=== PATIENT | female | born 1995 | race Caucasian/White ===

== ENCOUNTER 2023-01-22 18:19 | Emergency (ER) | payer OTHER, SELFPAY ==
[2023-01-22 18:45] VITALS: BP 141/74; PULSE 69; RESP 16; TEMP 36.1; O2SAT 100; BMI 30.5
--- NOTE | 2023-01-22 18:46 | ED.EYEPROB ---
HPI - Eye Problem General Chief complaint: Eye Problems Stated complaint: sunscreen in eye, blurry vision Time Seen by Provider: 01/22/23 19:55 Related Data Previous Rx's Medication Instructions Recorded tetrahydrozoline 0.05 %-zinc 0.25 1 drp ophthalmic (eye) TID #15 mL 01/22/23 % eye drops (Eye Drops Irritation Relief) Allergies Allergy/AdvReac Type Severity Reaction Status Date / Time No Known Allergies Allergy Verified 01/22/23 18:46 [facility] Social History Social History Advance Directives: No Advance Directives Information Provided: No Physical Exam Vital Signs: Vital Signs: Last Vital Signs Temp 96.9 F 01/22/23 18:45 Pulse 69 01/22/23 18:45 Resp 16 01/22/23 18:45 BP 141/74 H 01/22/23 18:45 Pulse Ox 100 01/22/23 18:45 O2 Del Method Room Air 01/22/23 18:45 BMI result Body Mass Index 30.5 Course Course Course Narrative: RME: 27 yo F w/ PMHx lupus c/o Left eye irritation, tearing, & blurry vision s/p suspected sunscreen in eye [employer]. Denies wearing glasses or contacts, trauma +L eye w/conjunctival injection/tearing. no glob rupture Visual acuity, tetracaine, fluorescein ordered Full HPI, ROS and PE to be performed by primary ED provider. Medications Administered Discontinued Medications Generic Name Dose Route Start Last Admin Trade Name Freq PRN Reason Stop Dose Admin Fluorescein Sodium 1 strip 01/22/23 18:46 01/22/23 19:02 Fluorescein Sodium Strip EYE-LEFT 01/22/23 18:47 1 strip ONCE ONE Administration Tetracaine HCl 1 drop 01/22/23 18:46 01/22/23 19:02 Tetracaine Hcl/Pf 0.5% Oph Kika 4 Ml Drops EYE-LEFT 01/22/23 18:47 1 drop ONCE ONE Administration Discharge Plan Discharge Clinical Impression: Eye irritation Patient Disposition: Home, Self-Care Instructions: Eye Pain (ED) Additional Instructions: Take your medications as prescribed. If you were prescribed antibiotics today, it is important that you take your medication to their entirety, do not skip any doses, do not finish them early. Follow-up with your primary care provider this week. Return to the emergency department with new or worsening symptoms. Such as fevers, chills, chest pain, shortness of breath, nausea, vomiting, dizziness, headache, vision changes, lethargy In case of emergency call 911 Prescriptions: New Eye Drops Irritation Relief 0.05-0.25 % drops 1 drp ophthalmic (eye) TID Qty: 15 0RF Referrals: Dominick Simpson [Physician] - 1 day Interventions: ED Discharge Assessment Last Done: 01/22/23 20:17 Discharge Date/Time: 01/22/23 20:18
[2023-01-22] MEDS: Tetracaine HCl/PF 0.5% Oph Sol 4 ML DROPS 1 DROP EYE-LEFT (19:02)
[2023-01-22] MEDS: Fluorescein Sodium STRIP 1 STRIP EYE-LEFT (19:02)
--- NOTE | 2023-01-22 20:07 | ED_ITS ---
HPI - Eye Problem General Chief complaint: Eye Problems Stated complaint: sunscreen in eye, blurry vision Time Seen by Provider: 01/22/23 19:55 Source: patient Mode of arrival: ambulatory Limitations: no limitations History of Present Illness HPI Narrative: This is a 27-year-old female who presents with left eye irritation status post getting sunscreen in her eye around 3 hours ago. Patient reports stinging to h er left eye, she states she tried to flush it with water however not helping. She initially felt like she had a code cover her left eye this has improved now she just has stinging. Denies double vision, dizziness, foreign body sensation. Not a contact lens wearer. She tells me she decided to come into the emergency department after calling poison Control. Related Data Previous Rx's Medication Instructions Recorded tetrahydrozoline 0.05 %-zinc 0.25 1 drp ophthalmic (eye) TID #15 mL 01/22/23 % eye drops (Eye Drops Irritation Relief) Allergies Allergy/AdvReac Type Severity Reaction Status Date / Time No Known Allergies Allergy Verified 01/22/23 18:46 Review of Systems Review of Systems: Constitutional : No Weight loss, No Fever, No Chills, No Fatigue, No Malaise ENT/Mouth : No sore throat, No Rhinorrhea Eyes: No Eye Pain, No Swelling, + Redness Cardiovascular : No Chest Pain, No SOB, No Dyspnea on Exertion, No Orthopnea, No Edema, No Palpitations Respiratory : No Cough, No Sputum, No Wheezing Gastrointestinal : No Nausea, No Vomiting, No Diarrhea, No Constipation, No abdominal Pain, No Hematochezia, No Melena Genitourinary : No Dysuria, No Urinary Frequency, No Hematuria, Musculoskeletal : No joint pain, No Myalgias, No Joint Swelling Skin : No Skin Lesions, No rash Neuro : No Weakness, No Numbness, No Dizziness, No Headache Psych : No Anxiety/Panic, No Depression All other systems reviewed and are negative Yes all other systems are reviewed and are negative PMFSH Past Medical History Attestation statement: The following information was validated with the patient. Source: old records reviewed and nursing notes reviewed Social History Social History Advance Directives: No Advance Directives Information Provided: No Physical Exam Vital Signs: Vital Signs: Last Vital Signs Temp 96.9 F 01/22/23 18:45 Pulse 69 01/22/23 18:45 Resp 16 01/22/23 18:45 BP 141/74 H 01/22/23 18:45 Pulse Ox 100 01/22/23 18:45 O2 Del Method Room Air 01/22/23 18:45 BMI result Body Mass Index 30.5 vss Appearance: Alert.? Oriented X3.? No acute distress.? Head: Normocephalic, atraumatic, no step-offs or deformities Eyes: Pupils equal, round and reactive to light.? Extraocular movements intact and pain-free. Left-sided conjunctiva injected Fluorescein stain without uptake. Negative Christine sign. No signs of globe rupture foreign bodies. No corneal abrasion. Neck: Normal inspection.? Neck supple.? CVS: Normal heart rate and rhythm.? Pulses normal.? Respiratory: No respiratory distress.? Breath sounds normal.? Abdomen: Soft and nontender.? Skin: Skin warm and dry.? Normal skin color.? Normal skin turgor.? Extremities: No lower extremity edema.? No calf ttp. 5/5 strength to bilateral upper and lower extremities Back: No midline tenderness, no C-spine tenderness, full range of motion, no CVA tenderness bilaterally Neuro: Oriented X 3.? No motor deficit.? No sensory deficit. CN 2-12 intact . Ambulating with steady gait normal coordination. Course Reevaluation(s) Reevaluation #1: Patient to be discharged with ophthalmology follow-up if pain persists. No need for patching. Educated patient on diagnosis and treatment plan, answered all question, patient verbalizes understanding. At this time patient will be discharged home, advised to return with new or worsening symptoms. Educated on worrisome signs and symptoms and when to return. At this time I feel comfortable discharge home. Time: 20:11 Medications Administered Discontinued Medications Generic Name Dose Route Start Last Admin Trade Name Mohanq PRN Reason Stop Dose Admin Fluorescein Sodium 1 strip 01/22/23 18:46 01/22/23 19:02 Fluorescein Sodium Strip EYE-LEFT 01/22/23 18:47 1 strip ONCE ONE Administration Tetracaine HCl 1 drop 01/22/23 18:46 01/22/23 19:02 Tetracaine Hcl/Pf 0.5% Oph Kika 4 Ml Drops EYE-LEFT 01/22/23 18:47 1 drop ONCE ONE Administration Medical Decision Making Medical Decision Making [facility] Narrative: 2007 27-year-old female presents with left eye irritation after getting some screen in eye Physical exam Eyes: Pupils equal, round and reactive to light.? Extraocular movements intact and pain-free. Left-sided conjunctiva injected. Vision intact Fluorescein stain without uptake. Negative Christine sign. No signs of globe rupture foreign bodies. No corneal abrasion. Likely conjunctival injection secondary to sun screen and I or chemical an eye. I do not suspect corneal ulcer, laceration, globe rupture. No signs of foreign body. Plan at this time irrigation. Will give eyedrops for irritation relief. Differential Diagnosis Differential Diagnoses: The differential diagnosis associated with the presentation includes Likely conjunctival injection secondary to sun screen and I or chemical an eye. I do not suspect corneal ulcer, laceration, globe rupture. No signs of foreign body. Admission/Observation Consideration of admission/observation: Escalation of care including admission/observation considered Not indicate Core Measures AMI core measures followed: Yes Measure exclusions: not indicated Discharge Plan Discharge Clinical Impression: Eye irritation Patient Disposition: Home, Self-Care Instructions: Eye Pain (ED) Additional Instructions: Take your medications as prescribed. If you were prescribed antibiotics today, it is important that you take your medication to their entirety, do not skip any doses, do not finish them early. Follow-up with your primary care provider this week. Return to the emergency department with new or worsening symptoms. Such as fevers, chills, chest pain, shortness of breath, nausea, vomiting, dizziness, headache, vision changes, lethargy In case of emergency call 911 Prescriptions: New Eye Drops Irritation Relief 0.05-0.25 % drops 1 drp ophthalmic (eye) TID Qty: 15 0RF Referrals: Dominick Simpson [Physician] - 1 day
--- NOTE | 2023-01-22 20:18 | PC.NURSE ---
left eye flushed with NS- well tolerated by pt
== END 2023-01-22 20:18 | disposition home or self-care (01) ==
PROVIDERS: Emergency Provider Student in an Organized Health Care Education/Training Program
DX: H57.89 Other specified disorders of eye and adnexa (principal)
CPT/HCPCS: 99282; 99283